=== PATIENT | female | born 1955 | race Hispanic/Latino ===

== ENCOUNTER 2016-12-27 07:54 | Day surgery (SDC) | payer BC ==
[2016-12-20 08:54] VITALS: BMI 30.2
[2016-12-27] MEDS ORDERED: Propofol 10 mg/ml Inj (20 ML) ONE (10:07)
[2016-12-27] MEDS ORDERED: Sodium Chloride 0.9% 1,000 ML IV SCH (11:00)
[2016-12-27 11:34] VITALS: O2SAT 100
[2016-12-27 13:14] VITALS: RESP 100; TEMP 98.4
[2016-12-27 13:15] VITALS: BP 151/68
[2016-12-27 13:17] VITALS: PULSE 52
== END 2016-12-27 13:01 | disposition home or self-care (01) ==
LOC: ENDO 07:54
PROVIDERS: ATTEND Internal Medicine Gastroenterology
DX: D12.3 Benign neoplasm of transverse colon (principal); K63.5 Polyp of colon; K31.7 Polyp of stomach and duodenum; K29.50 Unspecified chronic gastritis without bleeding; K21.9 Gastro-esophageal reflux disease without esophagitis; K57.30 Diverticulosis of large intestine without perforation or abscess without bleeding; K64.8 Other hemorrhoids; I10 Essential (primary) hypertension; D50.9 Iron deficiency anemia, unspecified
CPT/HCPCS: 43239; 45380; 45385; 88305; 88342; J2704; J7040 ×2